=== PATIENT | female | born 1980 | race Caucasian/White ===

== ENCOUNTER 2017-07-05 17:42 | Emergency (ER) | payer OTHER ==
[~2017-07-05] VITALS: Ht 152.4 cm; Wt 65.8 kg
[2017-07-05] MEDS ORDERED: PRENATAL + DHA1 EACH (17:56)
== END 2017-07-05 18:38 | disposition home or self-care (01) ==
LOC: ER 17:42
DX: O26.892 Other specified pregnancy related conditions, second trimester (principal); R21 Rash and other nonspecific skin eruption; Z34.01 Encounter for supervision of normal first pregnancy, first trimester

== ENCOUNTER 2017-11-01 09:43 | Outpatient (CLI) | payer OTHER ==
[~2017-11-01 09:43] MED LIST: PRENATAL + DHA1 EACH
== END 2017-11-01 10:00 | disposition home or self-care (01) ==
LOC: NST 09:43
DX: Z34.83 Encounter for supervision of other normal pregnancy, third trimester (principal)

== ENCOUNTER 2017-11-13 07:54 | Inpatient (IN) | payer OTHER ==
[~2017-11-13] VITALS: Ht 165.1 cm; Wt 75.7 kg
[2017-11-13] MEDS ORDERED: VALTREX1000 MG PO (09:15)
== END 2017-11-15 12:02 | disposition home or self-care (01) | DRG 775 ==
LOC: LDR 07:54 → SURG-SUITE 07:54 → LDR 11-27 16:06
PROC: 10E0XZZ Delivery of Products of Conception, External Approach (ICD-10-PCS; principal; 2017-11-13)
PROC: 0UQMXZZ Repair Vulva, External Approach (ICD-10-PCS; 2017-11-13)
PROC: 3E033VJ Introduction of Other Hormone into Peripheral Vein, Percutaneous Approach (ICD-10-PCS; 2017-11-13)
PROC: 4A1HXCZ Monitoring of Products of Conception, Cardiac Rate, External Approach (ICD-10-PCS; 2017-11-13)
DX: O71.82 Other specified trauma to perineum and vulva (principal); Z3A.38 38 weeks gestation of pregnancy; Z37.0 Single live birth

== ENCOUNTER 2018-08-04 15:33 | Outpatient (CLI) | payer OTHER ==
[~2018-08-04 15:33] MED LIST changes: +VALTREX1000 MG PO
== END 2018-08-04 16:36 ==
LOC: NST 15:33
DX: Z34.83 Encounter for supervision of other normal pregnancy, third trimester (principal)

== ENCOUNTER 2018-08-22 15:25 | Outpatient (CLI) | payer OTHER | END 2018-08-22 18:01 | disposition home or self-care (01) | LOC: NST 15:25 | DX: Z34.83 Encounter for supervision of other normal pregnancy, third trimester (principal) ==

== ENCOUNTER 2018-09-16 16:29 | Inpatient (IN) | payer OTHER ==
[~2018-09-16] VITALS: Ht 154.9 cm; Wt 79.4 kg
[2018-10-15] MEDS ORDERED: PREVACID30 MG PO (10:47)
[2018-10-15] MEDS ORDERED: PRENATAL TABLE1 EAC1 PO (10:49)
[2018-10-15] MEDS ORDERED: VALTREX1000 MG PO (10:50)
[2018-10-15] MEDS ORDERED: IRON325 MG PO (10:51)
== END 2018-10-17 10:56 | disposition home or self-care (01) | DRG 807 ==
LOC: LDR 10-15 06:22 → SURG-SUITE 10-15 06:22 → OB/GYN 10-16 16:28 → SURG-SUITE 10-17 10:56
PROVIDERS: ADMIT Obstetrics & Gynecology
PROC: 10907ZC Drainage of Amniotic Fluid, Therapeutic from Products of Conception, Via Natural or Artificial Opening (ICD-10-PCS; 2018-10-15)
PROC: 4A1HXCZ Monitoring of Products of Conception, Cardiac Rate, External Approach (ICD-10-PCS; 2018-10-15)
PROC: 10E0XZZ Delivery of Products of Conception, External Approach (ICD-10-PCS; principal; 2018-10-15 13:00)
DX: O80 Encounter for full-term uncomplicated delivery (principal); Z37.0 Single live birth; Z3A.39 39 weeks gestation of pregnancy

== ENCOUNTER 2018-10-13 14:56 | Outpatient (CLI) | payer OTHER | END 2018-10-13 17:50 | disposition home or self-care (01) | LOC: NST 14:56 | DX: Z34.83 Encounter for supervision of other normal pregnancy, third trimester (principal) ==

== ENCOUNTER 2018-12-20 11:33 | Emergency (ER) | payer OTHER ==
[~2018-12-20] VITALS: Ht 154.9 cm; Wt 68.0 kg
[~2018-12-20 11:33] MED LIST changes: +IRON325 MG PO; +PRENATAL TABLE1 EAC1 PO; +PREVACID30 MG PO
== END 2018-12-20 20:42 | disposition home or self-care (01) ==
LOC: ER 11:33 → CPU-OBS 11:59 → ER 11:59
DX: R07.89 Other chest pain (principal)
CPT/HCPCS: G0378; G0379; 93005